=== PATIENT | female | born 1945 | race Two or more races ===

== ENCOUNTER → 2021-02-10 | Outpatient (CLI) | payer MEDICARE ==
[2015-06-03 15:01] VITALS: BP 165/67
[~2021-02-10] MED LIST: ATOR40TA59 PO; ESOM40CA25 PO; ESTR42.53 VG; LEVO75TA5 PO
--- NOTE | 2021-02-10 15:45 | RAD ---
MR#: [id number] Date of Study: 02/10/2021 Ordering Physician: JOAQUINA ZAYAS, Referring Physician: JOAQUINA ZAYAS, Tech: Vinod Blackburn MBA, RDMS, RVT, RDCS, RTR APPROVED REPORT Patient Location : OUT-PATIENT Indications venous insufficiency Findings Grayscale images of the bilateral saphenofemoral junctions are grossly unremarkable. The bilateral greater saphenous veins have been previously stripped The bilateral lesser saphenous veins did not show any evidence of reflux. There is a small left posterior varicose vein noted at the level of the ankle but no obvious reflux i s noted. Critical Notification Critical Value: No <Conclusion> 1. No significant lower extremity venous reflux is noted Signed by : Joaquina Zayas, Electronically Approved : 02/10/2021 15:45:02
== END ==
LOC: US 10:06
PROVIDERS: ATTEND Internal Medicine Cardiovascular Disease
DX: I83.92 Asymptomatic varicose veins of left lower extremity (principal); I87.2 Venous insufficiency (chronic) (peripheral)
CPT/HCPCS: 93970